=== PATIENT | male | born 1950 | race Caucasian/White ===

== ENCOUNTER 2024-03-07 07:17 | Outpatient (CLI) | payer MEDICARE, SELFPAY ==
--- NOTE | 2024-03-07 | EST_ITS ---
Patient Info Name: Israel Triplett Age: 73 years : 1950 Gender: Male Ht: 71 in Wt: 199 lbs BSA: 2.14 m2 HR: 58 bpm BP: 146 / 77 mmHg Heart Rhythm: Sinus Rhythm Exam Date: 03/07/2024 9:41 AM Exam Location: Echo Lab Patient Status: Outpatient Admit Date: 03/07/2024 Staff Ordering Physician: Mike, Omar PUGH Attending Provider: Mike, Omar PUGH Exercise Technologist: Erma Mulligan CT Exercise Physician: Shaun Jimenez DO Exam Type: CA stress jesus w NM Study Info Indications R00.1 - Bradycardia, unspecified A regadenoson stress test was performed. Summary 1. 1. Negative Lexiscan stress test for ischemic ST changes by ECG criteria. 2. 2. Baseline hypertension. 3. 3. Nuclear scan to follow and will be reported separately. Please correlate with it. 4. 4. Patient informed of the above results. Protocol: Lexiscan Stress ECG Details Stage: REST Duration (min): 1 min : 7 sec HR (bpm): 58 SBP (mmHg): 146 DBP (mmHg): 77 Stage: REST Duration (min): 8 min : 27 sec HR (bpm): 59 SBP (mmHg): 146 DBP (mmHg): 77 Stage: STAGE 1 Duration (min): 0 min : 59 sec HR (bpm): 63 SBP (mmHg): 168 DBP (mmHg): 95 Stage: RECOVERY Duration (min): 1 min : 0 sec HR (bpm): 90 SBP (mmHg): 168 DBP (mmHg): 95 Stage: RECOVERY Duration (min): 2 min : 0 sec HR (bpm): 77 SBP (mmHg): 168 DBP (mmHg): 95 Stage: RECOVERY Duration (min): 3 min : 0 sec HR (bpm): 75 SBP (mmHg): 156 DBP (mmHg): 91 Stage: RECOVERY Duration (min): 3 min : 8 sec HR (bpm): 77 SBP (mmHg): 156 DBP (mmHg): 91 Rest HR: 59 bpm Peak HR: 93 bpm Rest Sys BP: 146 mmHg Peak Sys BP: 168 mmHg Max Pred HR: 147 bpm % Max Pred HR: 63 % Target HR: 125 bpm Max RPP: 15,624 bpm*mmHg Termination Reason: Completed protocol Cardiac Symptoms: Shortness of breath Total Time: 1 min : 0 sec Rest Haynes BP: 77 mmHg Peak Haynes BP: 95 mmHg Total Dose: 0.4 mg Resting ECG Sinus rhythm. Stress ECG No ST changes. Arrhythmias None. Report Signatures
--- NOTE | 2024-03-07 | ECHO_ITS ---
Patient Info Name: Israel Triplett Age: 73 years : 1950 Gender: Male Ht: 71 in Wt: 199 lbs BSA: 2.14 m2 HR: 51 bpm BP: 145 / 87 mmHg Technical Quality: Good Exam Date: 03/07/2024 8:16 AM Exam Location: Echo Lab Patient Status: Outpatient Admit Date: 03/07/2024 Staff Ordering Physician: MikeOmar MD Importer Exporter: Casper Lobo RDCS Attending Provider: ParthaOmar MD Exam Type: CA echo doppler color flow Study Info Indications - bradycardia Complete two-dimensional, color flow and Doppler transthoracic echocardiogram is performed. Summary 1. Complete two-dimensional, color flow and Doppler transthoracic echocardiogram is performed. 2. Left ventricular chamber dimension is normal. 3. Left ventricular systolic function is normal, estimated at 60-65%. 4. The left ventricular diastolic function is normal. 5. E/e' 9 is minimally elevated. 6. There is mild to moderate aortic valve regurgitation. 7. There is trace mitral valve regurgitation. 8. No pulmonary hypertension, estimated pulmonary arterial systolic pressure is 23 mmHg. Left Ventricle E/e' 9 is minimally elevated. Left ventricular chamber dimension is normal. Left ventricular systolic function is normal, estimated at 60-65%. The left ventricular diastolic function is normal. Right Ventricle Right ventricular systolic function is normal and with normal TAPSE 2.6 cm. Right ventricular chamber dimension is normal. Left Atria Left atrial chamber dimension is normal. Right Atria Right atrial chamber dimension is normal. Aortic Valve The aortic valve is trileaflet. There is no aortic valve stenosis. There is mild to moderate aortic valve regurgitation. Pulmonic Valve There is no pulmonic regurgitation. Mitral Valve There is no mitral valve stenosis. There is trace mitral valve regurgitation. Tricuspid Valve There is no tricuspid valve regurgitation. No pulmonary hypertension, estimated pulmonary arterial systolic pressure is 23 mmHg. Pericardium/Pleural There is no pericardial effusion. Inferior Vena Cava Normal inferior vena cava with >50% collapse upon inspiration consistent with normal right atrial pressure, 5 mmHg. Aorta The aortic root size at the sinus of Valsalva is normal. Left Ventricular Outflow Tract Name Value Normal LVOT 2D LVOT Diameter 2.1 cm LVOT Doppler LVOT Peak Gradient 4 mmHg LVOT Mean Gradient 2 mmHg LVOT VTI 25 cm LVOT VTI/AV VTI Ratio 1.1 LVOT Stroke Volume 86 ml LVOT CO 4.2 l/min LVOT CI 2.0 l/min/m2 Pulmonic Valve Name Value Normal PV Doppler PV Peak Gradient 5 mmHg Mitral Valve Name Value No
--- NOTE | ~2024-03-07 | NM_ITS ---
EXAMINATION: NM jesus stress w perfusion DATE: 03/07/2024 11:24 INDICATION: Bradycardia. TECHNIQUE: Rest images were obtained following intravenous administration of 9.8 mCi Tc99m tetrofosmi n (Myoview). The patient was infused intravenously with Lexiscan (regadenoson). Then, 30.9 mCi Tc99m tetrofosmin (Myoview) was administered intravenously, and axial and prone stress images were obtained . Data was reconstructed into short axis and horizontal and vertical long axis SPECT images. Gated SP ECT images were also obtained. COMPARISON: None. FINDINGS: There is no definite reversible or fixed perfusion abnormality to suggest ischemia or infar ction. There is no segmental wall motion abnormality. Left ventricular ejection fraction measures 6 0%. IMPRESSION: 1. No definite ischemia or infarct. 2. Normal left ventricular ejection fraction measuring 60%. Reviewed, dictated and finalized at location A.
== END 2024-03-07 07:18 | disposition home or self-care (01) ==
PROVIDERS: PCP Internal Medicine; Visit Provider Internal Medicine
DX: R00.1 Bradycardia, unspecified (principal); I35.1 Nonrheumatic aortic (valve) insufficiency; R06.02 Shortness of breath
CPT/HCPCS: 78452; 93017; 93306; A9502; J2785

== ENCOUNTER 2024-04-19 09:49 | Outpatient (CLI) | payer MEDICARE, SELFPAY ==
[2024-04-19 12:05] LABS: Basophils Absolute Auto 0.1 K/mm3 (0.0-0.1); Basophils Percent Auto 1.2 % (0.2-1.2); Eosinophils Absolute Auto 0.2 K/mm3 (0-0.3); Eosinophils Percent Auto 4.2 % (0-4.4); Hematocrit 42.5 % (42.0-52.0); Hemoglobin 14.3 g/dL (14.0-18.0); Immature Granulocyte Absolute 0.01 K/mm3 (0.00-0.031); Immature Granulocyte Percent A 0.2 % (0-0.5); Lymphocytes Absolute Auto 1.35 K/mm3 (0.9-3.2); Lymphocytes Percent Auto 25.9 % (18.3-44.2); Mean Corpuscular HGB Conc 33.6 g/dl (32-36); Mean Corpuscular Hemoglobin 31.8 pg (26-34); Mean Corpuscular Volume 94.7 fl (80-100); Mean Platelet Volume 9.1 fl (7.4-10.4); Monocytes Absolute Auto 0.5 K/mm3 (0.1-0.6); Monocytes Percent Auto 10.2 % (2.6-8.5); Neutrophils Percent Auto 58.3 % (45.5-73.1); Platelet Count Result 236 k/mm3 (150-375); Red Blood Count 4.49 M/mm3 (4.6-6.20); Red Cell Distribution Width 13.2 % (11.5-14.5); White Blood Count 5.2 K/mm3 (4.5-10.0)
[2024-04-19 12:17] LABS: Urine Cotinine NEGATIVE
[2024-04-19 12:21] LABS: Albumin Level 4.5 g/dL (3.5-5.1); Estimated Glomerular Filt Rate > 60; Glucose 77 mg/dL (65-110)
[2024-04-19 13:17] LABS: MRSA (PCR) NOT DETECTED (NOT DETECTE)
[2024-04-19 13:56] LABS: Hemoglobin A1C 5.5 % (<5.7)
== END 2024-04-19 09:50 | disposition home or self-care (01) ==
LOC: ANHSURGERY 09:53
PROVIDERS: PCP Internal Medicine; Visit Provider Orthopaedic Surgery
DX: M17.11 Unilateral primary osteoarthritis, right knee (principal); Z01.818 Encounter for other preprocedural examination
CPT/HCPCS: 80307; 82040; 82565; 82947; 83036; 85025; 86850; 86900; 86901; 87641

== ENCOUNTER 2024-04-30 00:31 | Day surgery (SDC) | payer MEDICARE, SELFPAY ==
--- NOTE | 2024-04-19 09:53 | PC.NURSE ---
Report to the Outpatient Waiting Room, entrance under the green pavilion located off [address] [facility], at time __6 AM on date 04/30/24 . Planned Procedure Time: 7:30 AM .? Time changes happen often and if your time is changed the preop area will call you the afternoon before. - You and your visitor will be asked to self-screen and do not enter if you have any COVID symptoms. Please call surgeon if you need to reschedule. - A mask is optional within the hospital at this time. Patients may have clear liquids (water, carbonated beverages, clear teas, apple juice) until 3 hours prior to surgery( 4:30 AM) with a maximum of 20 ounces. - No food from midnight until time of surgery and no smoking. This includes no chewing gum, candy or mints. - Infants may have breast milk until 4 hours before surgery, formula 6 hours prior to surgery. - Children will be allowed to drink immediately following surgery.? If applicable, please bring a bottle or sippy cup to assist with drinking. Juice, water, soda, and popsicles are readily available.? For infants on formula, please bring formula the day of surgery.? Pacifiers are allowed. Take only the following medications with a SIP of water on the morning of surgery: __NONE DO NOT STOP ANY OF YOUR OTHER PRESCRIPTION MEDICATIONS PRIOR TO SURGERY EXCEPT THE FOLLOWING Medications to discontinue per physician ____ASPIRIN AND NAPROXEN PER DR TENORIO.HOLD ALL VITAMINS AND SUPPLEMENTS 3 DAYS PRE OP LAST DOSE 04/26/24 Please no make-up, nail irish, hairspray, perfume, deodorant, or body powder the day of surgery.? No jewelry (including any body piercings) or valuables the day of surgery, leave them at home.? Please take a shower or bath the night before, or the morning of, surgery with an antibacterial soap.? Wear comfortable, loose fitting clothing.? Children are encouraged to wear pajamas. - Jewelry must be removed prior to entering the operating room.? Rings and piercings that are not removed may be cut off. - The hospital will not accept responsibility for valuables.? - Please leave all valuables, including medications, at home the day of surgery. If you are going home after surgery, a licensed boat driver must drive you home.? - NO public transportation without another adult if you receive anesthesia. - We recommend that an adult stay with you for 24 hours following discharge. - We also recommend that you do not drive, make important decision, drink alcoholic beverages, or take any drugs that were not prescribed by your health care provider for at least 24 hours after your discharge time. Follow any additional instructions given to you from your surgeon. VERBAL AND WRITTEN instructions given to _PATIENT and asked if any additional questions and then verbalized understanding. Patient advised to call surgeon office or pre surgery nurse liaison [phone] if any additional questions.
[2024-04-19 09:57] VITALS: BMI 27.6
[2024-04-19 10:46] VITALS: BP 151/85; PULSE 60; RESP 18; TEMP 36.7; O2SAT 100
--- NOTE | 2024-04-24 07:42 | PM.IMHP ---
H&P: HPI History of Present Illness Date/Time: 04/24/24 07:42 Chief Complaint: Patient has osteoarthritis right knee. This has been unresponsive to conservative treatment. He would like to consider knee replacement surgery. He does have a knee replacement on the left knee. Review of Systems Musculoskeletal: Musculoskeletal: Reports arthralgias, Reports joint swelling and Reports stiffness Neurologic: Reports abnormal gait [facility] Past Medical History Medical History Crohn disease Hyperlipidemia Surgical History Surgical History History of appendectomy History of left knee replacement Social History Social History (Updated 02/07/24 @ 12:22 by Latrice Ma CMA) Smoking packs per day: 0.25 Smoking cigarettes per day: 5.0 Years smoked: 15 Smoking pack-years: 3.75 Smoking status: Former smoker Tobacco type: cigarettes Smoking end date: 05/30/89 Additional smoking assessment comments: DENIES ANY FORM OF TOBACCO USE Alcohol intake: current Drinks per week: 12 Alcohol use details: BEER Substance use type: does not use Current Housing: Decline to Answer Concerned About Future Housing: Decline to Answer Difficulty Paying Gas/Electric Bills: Decline to Answer Difficulty Paying for Meds: Decline to Answer Currently Unemployed: Decline to Answer Education: Decline to Answer Difficulty w/ Childcare or Family Care: Decline to Answer Living arrangements: with family Occupation/Education: retired Gender identity (if verbalized by the patient): Male Spiritual care concerns: No Meds Home Medications and Allergies Home Medications Medication Instructions Recorded Confirmed Type atorvastatin 10 mg tablet 10 mg PO DAILY 10/25/23 04/19/24 History colestipol 1 gram tablet 1 g PO DAILY 10/25/23 04/19/24 History naproxen sodium 220 mg tablet 220 mg PO PRN PRN Pain 10/25/23 04/19/24 History (Aleve) aspirin 81 mg tablet,delayed 81 mg PO DAILY 04/19/24 04/19/24 History release (Adult Low Dose Aspirin) cholecalciferol (vitamin D3) 100 100 mcg PO DAILY 04/19/24 04/19/24 History mcg (4,000 unit) tablet ginkgo biloba 40 mg tablet 40 mg PO DAILY 04/19/24 04/19/24 History glucosamine sulf dipot 1 cap PO DAILY 04/19/24 04/19/24 History chlr,msm,chond 550 mg-C 30 mg-stas 1 mg capsule (Glucosamine Chondroitin) vitamin B complex 1 cap PO DAILY 04/19/24 04/19/24 History Allergies Allergy/AdvReac Type Severity Reaction Status Date / Time No Known Allergies Allergy Verified 04/19/24 09:57 Exam Narrative: On exam patient is motion the knee from about 5-110 degrees. He has varus deformity. He has got spurring and grinding crepitus and pain with manipulation. He walks with an antalgic gait. Neurologically appears to be grossly intact. Radiology Reports: Comments: Bill Fuentes M.D. Orthopedics Patient: Israel Triplett : 1950 10/25/23 07:14 XR knee RT 3V Routine Interpretation: AP lateral skyline view RIGHT knees demonstrate [id number] arthritis of the right knee. He has a total knee arthroplasty in reasonable alignment on the left. This report may have been done utilizing a voice recognition system. Attempts have been made to correct errors. However, there may be uncorrected grammatical, spelling, and recognition errors present. Documented By: Bill Fuentes MD 10/25/23 0752 Signed By: <Electronically signed by Bill Fuentes MD> 10/25/23 0800 Knee X-Ray 10/25/23 Orthopedics Result Report 10/25/23 Assessment and Plan Assessment and plan (1) Osteoarthritis of right knee: Code(s): M17.11 - Unilateral primary osteoarthritis, right knee Status: Acute Assessment and Plan: Patient has osteoarthritis right knee. He has a knee replacement on the left and is doing well from that. He has failed conservative treatment like to consider knee replacement surgery on the right. I discussed risks benefits limitations and alternatives with the patient in detail he understands and agrees. Will proceed with total knee arthroplasty right per his request.
[2024-04-30] VITALS (13 sets, daily range): BP systolic 125–153; BP diastolic 65–93; PULSE 64–91; RESP 12–18; TEMP 36.1–36.6; O2SAT 95–100; BMI 27.1
--- NOTE | ~2024-04-30 | XR_ITS ---
EXAMINATION: [id number] DATE: 04/30/2024 10:08 INDICATION: Total right knee arthroplasty. Postop. TECHNIQUE: 2 views of right knee were obtained. COMPARISON: None. FINDINGS: There is a total right knee arthroplasty with patellar resurfacing in near-anatomic alignme nt. No fracture. There is gas in the knee joint and soft tissues, consistent with recent surgery. Ant erior skin therese are noted. IMPRESSION: 1. Total right knee arthroplasty in near-anatomic alignment. Reviewed, dictated and finalized at location [facility]
[2024-04-30] MEDS: TRANEXAMIC ACID 1,000MG/ISO100 1,000 MG/100 ML BAG 200 MG IVPB (06:37)
[2024-04-30] MEDS: VANCOMYCIN 1,250 MG/NS 250 ML 1,250 MG/250 ML BAG 166.67 MG IVPB (06:37)
[2024-04-30] MEDS: ACETAMINOPHEN 500 MG TABLET 1000 MG PO (06:37)
[2024-04-30] MEDS: LACTATED RINGERS 1,000 ML 30 ML IV CONT ×3 (06:38→09:39)
--- NOTE | 2024-04-30 06:50 | WPDHPUPDATE1 ---
History and Physical Update Update Date/Time: 04/30/24 06:50 History and Physical has been reviewed, including an updated exam of the patient. There are NO changes in the patient's condition. Risks, benefits, and alternatives have been discussed and questions answered. Patient agrees to proceed with procedure.
--- NOTE | 2024-04-30 07:03 | P.PNAN_ITS ---
Anes - Initial Pre Proc Eval Procedure: Operation Date: 04/30/24 07:30 Proposed Procedures p Right Total Knee Arthroplasty - Bill Fuentes MD Date/Time: 04/30/24 07:03 Surgeon: Bill Fuentes MD Pre Op Diagnosis: O A Rt Knee Patient Data Age: 73 Gender: M Height: 1.8 m Weight: 88.2 kg Last Vital Signs Temp 97.7 F 04/30/24 06:48 Pulse 64 04/30/24 06:48 Resp 18 04/19/24 10:46 BP 135/65 04/30/24 06:48 Pulse Ox 98 04/30/24 06:48 O2 Del Method Room Air 04/30/24 06:48 Allergies Allergy/AdvReac Type Severity Reaction Status Date / Time No Known Allergies Allergy Verified 04/19/24 09:57 Home Medications Medication Instructions Recorded Confirmed Type atorvastatin 10 mg tablet 10 mg PO DAILY 10/25/23 04/19/24 History colestipol 1 gram tablet 1 g PO DAILY 10/25/23 04/19/24 History naproxen sodium 220 mg tablet 220 mg PO PRN PRN Pain 10/25/23 04/19/24 History (Aleve) aspirin 81 mg tablet,delayed 81 mg PO DAILY 04/19/24 04/19/24 History release (Adult Low Dose Aspirin) cholecalciferol (vitamin D3) 100 100 mcg PO DAILY 04/19/24 04/19/24 History mcg (4,000 unit) tablet ginkgo biloba 40 mg tablet 40 mg PO DAILY 04/19/24 04/19/24 History glucosamine sulf dipot 1 cap PO DAILY 04/19/24 04/19/24 History chlr,msm,chond 550 mg-C 30 mg-stas 1 mg capsule (Glucosamine Chondroitin) vitamin B complex 1 cap PO DAILY 04/19/24 04/19/24 History Patient hx anesthesia problems: none Family hx anesthesia problems: none Results Review: All pre-operative results and documents have been reviewed as part of the pre- operative evaluation. [facility] Past Medical History Medical History Crohn disease Hyperlipidemia Surgical History Surgical History History of appendectomy History of left knee replacement Social History Social History Smoking packs per day: 0.25 Smoking cigarettes per day: 5.0 Years smoked: 15 Smoking pack-years: 3.75 Smoking status: Former smoker Tobacco type: cigarettes Smoking end date: 05/30/89 Additional smoking assessment comments: DENIES ANY FORM OF TOBACCO USE Alcohol intake: current Drinks per week: 12 Alcohol use details: BEER Substance use type: does not use Current Housing: Decline to Answer Concerned About Future Housing: Decline to Answer Difficulty Paying Gas/Electric Bills: Decline to Answer Difficulty Paying for Meds: Decline to Answer Currently Unemployed: Decline to Answer Education: Decline to Answer Difficulty w/ Childcare or Family Care: Decline to Answer Living arrangements: with family Occupation/Education: retired Gender identity (if verbalized by the patient): Male Spiritual care concerns: No Anes - Eval Final PreProcedure Day of Procedure 04/30/24 07:03 Patient weight: normal Heart: regular rate and rhythm Lungs: clear to auscultation Airway: Mallampati scale class II Neurological: alert and oriented Last oral intake: >/= 8 hours ASA classification: II Emergent: no Anesthetic plan: proceed Anesthesia type and monitoring: general ETT and standard monitoring Results Review: All pre-operative results and documents have been reviewed as part of the pre- operative evaluation. Hyperlipidemia. ECHO 02/2024 w nml LVEF, no . Informed Consent: The patient's anesthetic plan and its attendant risks and benefits were discussed with the patient/family/POA. Questions were solicited and answers provided to the satisfaction of the patient/family/POA.
--- NOTE | 2024-04-30 07:18 | WPDANESPNB ---
Anes - Peripheral Nerve Block Date/Time: 04/30/24 07:18 I have discussed with the patient/family/POA the placement of a peripheral nerve block for post-operative pain management, including associated risks, benefits, complications, and side effects. Alternative methods of post-operative analgesia were detailed. Questions were solicited and answers provided to the satisfaction of the patient/family/POA. Time-Out: A pre-procedural Time-Out was completed immediately before starting the procedure and confirmed: Patient Identification, Site, Procedure, Patient Position and the Availability of Requisite Equipment. Clinical Indications: Acute post-operative pain management requested by the operative surgeon. Nerve Block Insertion Note Anes-nerve block: adductor canal right Patient position: supine Skin prep: chlorhexidine Needle: 22 gauge, stimulating, insulated echogenic needle. Needle length: 80 mm Technique: ultrasound Injectate: other (Bupiv 0.5% 15 mls. ) Observations: tolerated well Complications: none Procedure start time:: 720 Procedure end time:: 725
[2024-04-30] MEDS: ceFAZolin 2 GM/D5W 50 ML 2 GM/50 ML BAG IVPB ×2 (07:42→16:58)
[2024-04-30] MEDS: SODIUM CHLORIDE 0.9% IV 37.7 ML, MORPHINE SULFATE INJ (*CRX) 2 MG, ROPivacaine HCL 1% 2... INFILTRATE (08:00)
[2024-04-30] MEDS: TRANEXAMIC ACID 1,000 MG/10 ML AMPUL 1000 MG IV PUSH (09:10)
--- NOTE | 2024-04-30 09:16 | W.PM.PROC2 ---
Procedure Note - Detailed Date of Procedure 04/30/24 Pre-op Diagnosis Osteoarthritis RIGHT Knee Post-op Diagnosis Same Procedure Performed RIGHT total knee arthroplasty Surgeon Bill Fuentes MD Anesthesia General Indications Pain and Arthritis Description of Procedure The patient was brought to operating room #8. A general anesthetic was administered. Placed on the operating table and sterilely prepped and draped in usual manner. A longitudinal incision was made. Tourniquet inflated to 300 mmHg for a total of 57 minutes. Dissection was carried down to the fascia. Medial parapatellar incision was made and the patella subluxated laterally. Patella cut from 25 to 15 mm and sized for a 37 mm button. The tibia was cut perpendicular to the long axis and femur cut in 5 degrees of valgus, taking an additional millimeter off for is flexion contracture. A 67.5 femur trialed. 71 tibia was felt to fit the best. The soft tissues balanced, hemostasis obtained. All [address], 71 tibia, 67.5 femur, 37 mm patella, and 10AS mm poly. Motion was 0-125 degrees with good stability in both flexion and extension. The wound was closed with #2 Vicryl, 2-0 Vicryl and therese. [employer]plants [employer] Estimated Blood Loss 200 Drains No Packing No Pathology None sent Complications No immediate complications Condition Stable Disposition PACU [facility] Billing Surgery - Charge Forward: Surgery Billing ([id number] Total Knee)
[2024-04-30] MEDS: fentaNYL CITRATE INJ (*CRX) 100 MCG/2 ML VIAL 25 MCG IV PUSH ×4 (10:02→10:27)
--- NOTE | 2024-04-30 11:27 | ADMGEN ---
This patient, Israel Triplett, was admitted to [facility] Room 313-01 at 1102. Patient/family oriented to hospital policies and general routines including ID bracelet, bed and alarms, visiting hours, pain management, procedures, bathroom and other care routines, personal items, smoking policy, room service/diet, and visiting hours. Information on how to activate the Rapid Response Team has been discussed. Patient/Family are encouraged to report perceived risks to care and to ask questions if they do not understand what they are told or what they should do.
[2024-04-30] MEDS: SODIUM CHLORIDE 0.9% IV 1,000 ML 125 ML IV CONT (11:39)
--- NOTE | 2024-04-30 12:18 | PM.IMCN ---
Assessment and Plan Assessment and plan (1) Osteoarthritis of right knee: Qualifiers: Osteoarthritis type: primary Qualified Code(s): M17.11 - Unilateral primary osteoarthritis, right knee Code(s): M17.11 - Unilateral primary osteoarthritis, right knee Status: Acute Assessment and Plan: Underwent a right total knee arthroplasty on 04/30 with Alfredo PUGH. Primary management through orthopedic team. - ambulate with assistance and up to chair - use IS - neurovasc checks - see order for intervals - SCDs and INGE - resume diet - analgesics and antiemetics p.r.n. - monitor labs in AM - CBC and BMP - bowel regimen: docusate/senna, polyethylene glycol - PT/OT (2) Hyperlipidemia: Qualifiers: Hyperlipidemia type: unspecified Qualified Code(s): E78.5 - Hyperlipidemia, unspecified Code(s): E78.5 - Hyperlipidemia, unspecified Status: Chronic Assessment and Plan: - atorvastatin 10 mg daily continued Plan Diet: Regular GI Prophylaxis: Not currently indicated DVT Prophylaxis: SCDs, TEDs, start Xarelto on 04/30 Lines: Peripheral Code Status: Full code HPI Date of Consult Consult date: 04/30/24 Requesting Physician: Bill Fuentes MD Primary Care Provider: Omar MckeonMD Consult Narrative Reason for consult: Medical Managment Narrative: 73 y/o M presents here for a right total knee arthroplasty with PMH of Crohn's disease and hyperlipidemia. The patient presented here for a right total knee arthroplasty done on 04/30 with Alfredo PUGH. He reports that he has had ongoing pain to his right knee for the past couple years. Has previously failed conservative treatment including one steroid injection, physical therapy, and Voltaren PO if he had a planned increase in activity (such as vacation). Last steroid injection was in 4-5 months ago, offered relief initially but wore off after 4-5 weeks. Has previously underwent a left knee arthroplasty in 2017 with good results and an uneventful recovery. Pain now interfering with his daily activities. Given these factors he elected to move forward with surgical management. Postoperatively he is reporting no nausea/vomiting and pain is manageable. Denies any recent changes to his medical history or medications. Preop VS: 98? F, HR 60, R 18, 151/85, and 100% on RA. Preop workup: No leukocytosis, no anemia, creatinine 0.7 and GFR >60, nasal MRSA negative. Review of Systems Review of Systems: All systems reviewed & are unremarkable except as noted in HPI and below PMFSH Past Medical History Medical History (Updated 04/30/24 @ 12:23 by Noreen Mata APRN) Crohn disease Hyperlipidemia Surgical History Surgical History (Updated 04/30/24 @ 13:49 by Noreen Mata APRN) History of appendectomy History of arthroplasty of right knee (04/30/24) History of left knee replacement (~2017) Social History Social History Smoking packs per day: 0.25 Smoking cigarettes per day: 5.0 Years smoked: 15 Smoking pack-years: 3.75 Smoking status: Former smoker Additional smoking assessment comments: DENIES ANY FORM OF TOBACCO USE Alcohol intake: current Drinks per week: 12 Alcohol use details: BEER Substance use type: does not use Do You Feel Safe in your Home?: Yes Lack of Transportation: No Lack of Food: Never True Current Housing: Decline to Answer Concerned About Future Housing: Decline to Answer Difficulty Paying Gas/Electric Bills: Decline to Answer Difficulty Paying for Meds: Decline to Answer Currently Unemployed: Decline to Answer Education: Decline to Answer Difficulty w/ Childcare or Family Care: Decline to Answer Living arrangements: with family Occupation/Education: retired Gender identity (if verbalized by the patient): Male Spiritual care concerns: No Meds Home Medications and Allergies Home Medications Medication Instructions Recorded Confirmed Type atorvastatin 10 mg tablet 10 mg PO DAILY 10/25/23 04/19/24 History colestipol 1 gram tablet 1 g PO DAILY 10/25/23 04/19/24 History naproxen sodium 220 mg tablet 220 mg PO PRN PRN Pain 10/25/23 04/19/24 History (Aleve) aspirin 81 mg tablet,delayed 81 mg PO DAILY 04/19/24 04/19/24 History release (Adult Low Dose Aspirin) cholecalciferol (vitamin D3) 100 100 mcg PO DAILY 04/19/24 04/19/24 History mcg (4,000 unit) tablet ginkgo biloba 40 mg tablet 40 mg PO DAILY 04/19/24 04/19/24 History glucosamine sulf dipot 1 cap PO DAILY 04/19/24 04/19/24 History chlr,msm,chond 550 mg-C 30 mg-stas 1 mg capsule (Glucosamine Chondroitin) vitamin B complex 1 cap PO DAILY 04/19/24 04/19/24 History Allergies Allergy/AdvReac Type Severity Reaction Status Date / Time No Known Allergies Allergy Verified 04/19/24 09:57 Vital Signs Vital Signs - 24 hr 04/30/24 06:48 04/30/24 09:39 04/30/24 09:55 Temperature 97.7 F 97 F L Pulse Rate 64 70 89 Respiratory Rate 12 17 Blood Pressure 135/65 128/74 148/93 H Pulse Oximetry 98 100 96 Oxygen Delivery Room Air Simple Face Mask Room Air Oxygen Flow Rate 10 04/30/24 10:10 04/30/24 10:25 04/30/24 10:40 Temperature Pulse Rate 87 88 89 Respiratory Rate 15 16 13 Blood Pressure 148/85 H 153/84 H 152/81 H Pulse Oximetry 95 96 97 Oxygen Delivery Room Air Room Air Room Air Oxygen Flow Rate Exam Const: General: comfortable and no acute distress Other: , male, nontoxic appearing HENMT: Face/Nose/Sinus: Normal nares present Mouth: Yes moist mucous membranes Eyes: General: appearance normal, both eyes and all related structures Sclera: sclerae normal Pupils: Equal, round and reactive pupils present EOM: EOMs intact bilaterally Resp: Effort & Inspection: normal respiratory effort Auscultation: clear to auscultation bilaterally Cardio: Rate: regular rate Rhythm: regular rhythm Other: S1-S2 present without murmur, rub, ectopy GI: Other: Abdomen soft, nondistended, nontender. Neuro: Speech: normal speech Motor exam (neuro): 5/5 motor strength present throughout Sensory Exam: normal sensation Other: A&O x4 Extrem: General: normal exam except as noted (Postsurgical incision to right knee. Dressing CDI. Mild edema.) Psych: Mental Status: mental status grossly normal Affect: normal affect Other: Good insight and judgment, pleasant Quality VTE Prophylaxis VTE prophylaxis: mechanical ordered and pharmacologic ordered Hospitalist [facility] Advance Care Plan I have confirmed that the patient's Advanced Care Plan is present, code status is documented, or surrogate decision maker is listed in patient medical record.: Yes Medication Reconciliation I have utilized all available resources to obtain, update and review the patients current medications (includes all prescriptions, OTC, herbals, cannabis, and nutritional supplements).: Yes
[2024-04-30] MEDS: SENNA/DOCUSATE SODIUM TABLET 2 TAB PO (16:58)
[2024-04-30] MEDS: CELECOXIB 200 MG CAPSULE PO (16:58)
[2024-04-30] MEDS: HYDROcodone/acetaminophen (*CRX) 10-325 MG TABLET 1 TAB PO (17:06)
[2024-04-30] MEDS: RIVAROXABAN 10 MG TABLET PO (21:06)
[2024-04-30] MEDS: HYDROcodone/acetaminophen (*CRX) 5-325 MG TABLET 1 TAB PO (21:06)
[2024-05-01] MEDS: ceFAZolin 2 GM/D5W 50 ML 2 GM/50 ML BAG IVPB ×2 (00:31→09:17)
[2024-05-01 04:37] VITALS: BP 139/77; PULSE 77; RESP 16; TEMP 36.6; O2SAT 97
[2024-05-01] MEDS: HYDROcodone/acetaminophen (*CRX) 5-325 MG TABLET 1 TAB PO (06:47)
[2024-05-01 06:48] LABS: Basophils Percent Auto 0.3 % (0.2-1.2); Eosinophils Percent Auto 0.6 % (0-4.4); Hematocrit 34.4 % (42.0-52.0); Hemoglobin 11.5 g/dL (14.0-18.0); Immature Granulocyte Absolute 0.01 K/mm3 (0.00-0.031); Immature Granulocyte Percent A 0.2 % (0-0.5); Lymphocytes Absolute Auto 0.86 K/mm3 (0.9-3.2); Lymphocytes Percent Auto 13.7 % (18.3-44.2); Mean Corpuscular HGB Conc 33.4 g/dl (32-36); Mean Corpuscular Hemoglobin 31.8 pg (26-34); Mean Platelet Volume 8.7 fl (7.4-10.4); Monocytes Absolute Auto 0.8 K/mm3 (0.1-0.6); Monocytes Percent Auto 13.2 % (2.6-8.5); Neutrophils Absolute Auto 4.5 K/mm3 (1.3-6.7); Platelet Count Result 191 k/mm3 (150-375); Red Blood Count 3.62 M/mm3 (4.6-6.20); Red Cell Distribution Width 13.2 % (11.5-14.5); White Blood Count 6.3 K/mm3 (4.5-10.0)
[2024-05-01 07:12] LABS: Anion Gap 2 mmol/L (4-12); Blood Urea Nitrogen 13 mg/dL (9-20); Calcium 8.1 mg/dL (8.4-10.2); Carbon Dioxide 29 mmol/L (22-30); Chloride 103 mmol/L (98-107); Estimated CRCL calculation 76 ml/min; Estimated Glomerular Filt Rate > 60; Glucose 123 mg/dL (65-110); Potassium 3.6 mmol/L (3.4-5.0); Sodium 134 mmol/L (137-145)
--- NOTE | 2024-05-01 07:14 | PM.PNORT ---
Progress Note: A&P Assessment and Plan (1) History of knee replacement procedure of right knee: Code(s): Z96.651 - Presence of right artificial knee joint Status: Acute Assessment and Plan: The patient is status post total knee arthroplasty right. He seemingly has done well postoperatively. Think after therapy can be dismissed home. He can be full weight-bearing on the knee. If he has any changes or problems I have asked him to call. Follow-up in 2 weeks for sutures out. Subjective Subjective Date/Time Seen: 05/01/24 07:14 Post Op day: 1 Principal diagnosis: RIGHT TOTAL KNEE Review of Systems Review of Systems: All systems reviewed & are unremarkable except as noted in HPI and below Exam Narrative: Patient wiggles toes. He is able to ambulate with a walker. His dressing is dry. Neurologically appears intact. Objective Data Vital Signs Vital Signs: Vital Signs - 24 hr 04/30/24 09:39 04/30/24 09:55 04/30/24 10:10 Temperature 97 F L Pulse Rate 70 89 87 Respiratory Rate 12 17 15 Blood Pressure 128/74 148/93 H 148/85 H Pulse Oximetry 100 96 95 Oxygen Delivery Simple Face Mask Room Air Room Air Oxygen Flow Rate 10 04/30/24 10:25 04/30/24 10:40 04/30/24 13:24 Temperature Pulse Rate 88 89 Respiratory Rate 16 13 Blood Pressure 153/84 H 152/81 H Pulse Oximetry 96 97 Oxygen Delivery Room Air Room Air Room Air Oxygen Flow Rate 04/30/24 10:52 04/30/24 11:07 04/30/24 11:37 Temperature 97.2 F L 97.2 F L 97.8 F Pulse Rate 86 87 90 Respiratory Rate 18 18 18 Blood Pressure 149/84 H 140/70 125/72 Pulse Oximetry 96 96 96 Oxygen Delivery Oxygen Flow Rate 04/30/24 12:37 04/30/24 16:37 04/30/24 20:37 Temperature 97.9 F 97.6 F 97.9 F Pulse Rate 91 80 80 Respiratory Rate 18 18 16 Blood Pressure 138/65 132/75 131/76 Pulse Oximetry 96 96 97 Oxygen Delivery Oxygen Flow Rate 04/30/24 20:00 04/30/24 23:58 05/01/24 04:37 Temperature 97.7 F 97.8 F Pulse Rate 81 77 Respiratory Rate 16 16 Blood Pressure 137/74 139/77 Pulse Oximetry 96 97 Oxygen Delivery Room Air Oxygen Flow Rate Intake/Output Intake/Output: Intake & Output 04/28/24 04/29/24 04/30/24 05/01/24 23:59 23:59 23:59 23:59 Intake Total 2079 50 Balance 2079 50 Meds/Results Medications: Active Medications Generic Name Dose Route Start Last Admin Trade Name Freq PRN Reason Stop Dose Admin Hydrocodone Bitart/Acetaminophen 1 tab 04/30/24 10:52 05/01/24 06:47 Hydrocodone/Acetaminophen (*Crx) 5-325 Mg Tablet PO 1 tab Q4H PRN Administration Pain Rated 4-6 Hydrocodone Bitart/Acetaminophen 1 tab 04/30/24 10:52 04/30/24 17:06 Hydrocodone/Acetaminophen (*Crx) 10-325 Mg Tablet PO 1 tab Q4H PRN Administration Pain Rated 7-10 Aspirin 81 mg 05/01/24 09:00 Aspirin 81 Mg Enteric Tablet PO DAILY [facility] Atorvastatin Calcium 10 mg 05/01/24 09:00 Atorvastatin 10 Mg Tablet PO DAILY [facility] Celecoxib 200 mg 04/30/24 17:00 04/30/24 16:58 Celecoxib 200 Mg Capsule PO 200 mg BIDWM [facility] Administration Cyclobenzaprine HCl 10 mg 04/30/24 10:52 Cyclobenzaprine Hcl 10 Mg Tablet PO Q8H PRN Spasms Diphenhydramine HCl 25 mg 04/30/24 10:52 Diphenhydramine Hcl Inj 50 Mg/Ml Vial IV PUSH Q6H PRN Itching Hydromorphone HCl 1 mg 04/30/24 10:52 Hydromorphone Hcl Inj (*Crx) 1 Mg/Ml Syr IV PUSH Q2H PRN Breakthrough Pain Rated 7-10 or NPO Hydromorphone HCl 0.5 mg 04/30/24 10:52 Hydromorphone Hcl Inj (*Crx) 1 Mg/Ml Syr IV PUSH Q2H PRN Breakthrough Pain Rated 4-6 or NPO Cefazolin Sodium 2 gm in 50 mls @ 100 mls/hr 04/30/24 16:00 05/01/24 01:01 Ancef 2 Gm/D5w 50 Ml IVPB 05/01/24 08:29 Infused Q8H [facility] Infusion Ibuprofen 800 mg in 200 mls @ 400 mls/hr 04/30/24 10:52 Caldolor 800 Mg/200 Ml IVPB Q6H PRN Breakthrough Pain Rated 1-3 or NPO Naloxone HCl 0.1 mg 04/30/24 10:52 Naloxone Hcl 0.4 Mg/Ml Vial IV PUSH Q2M PRN Opiate Reversal Ondansetron HCl 4 mg 04/30/24 10:52 Ondansetron Inj 4 Mg/2 Ml Vial IV PUSH Q4H PRN Nausea And Vomiting Polyethylene Glycol 17 gm 05/01/24 09:00 Polyethylene Glycol 3350 17 Gm Powd.Pack PO QAM MARIAN Rivaroxaban 10 mg 04/30/24 21:00 04/30/24 21:06 Rivaroxaban 10 Mg Tablet PO 05/11/24 17:01 10 mg DAILY@17 MARIAN Administration Senna/Docusate Sodium 2 tab 04/30/24 17:00 04/30/24 16:58 Senna/Docusate Sodium Tablet PO 2 tab BID MARIAN Administration Tramadol HCl 50 mg 04/30/24 10:52 Tramadol Hcl (*Crx) 50 Mg Tablet PO Q4H PRN Pain Rated 1-3 Radiology Results: ITS Impressions Knee X-Ray 04/30/24 11:01 IMPRESSION: 1. Total right knee arthroplasty in near-anatomic alignment. Labs Labs: Laboratory Results - last 24 hr 05/01/24 06:40 WBC 6.3 RBC 3.62 L Hgb 11.5 L Hct 34.4 L MCV 95.0 MCH 31.8 MCHC 33.4 RDW 13.2 Plt Count 191 MPV 8.7 Immature Gran % (Auto) 0.2 Neut % (Auto) 72.0 Lymph % (Auto) 13.7 L [place] % (Auto) 13.2 H Eos % (Auto) 0.6 Baso % (Auto) 0.3 Lymph # (Auto) 0.86 L [place] # (Auto) 0.8 H Eos # (Auto) 0.0 Baso # (Auto) 0.0 Abs Immat Gran (auto) 0.01 Absolute Neuts (auto) 4.5 Absolute Nucleated RBC 0.000 Nucleated RBC % 0.0 Sodium 134 L Potassium 3.6 Chloride 103 Carbon Dioxide 29 Anion Gap 2 L BUN 13 Creatinine 0.80 Estim Creat Clear Calc 76 Estimated GFR > 60 Glucose 123 H Calcium 8.1 L
--- NOTE | 2024-05-01 07:18 | P.DS_ITS ---
DS: Admitting Diagnosis Discharge Date 05/01/24 Admitting Diagnosis Osteoarthritis right knee. DS: Discharge Diagnosis Discharge Diagnosis (1) History of knee replacement procedure of right knee: Code(s): Z96.651 - Presence of right artificial knee joint Status: Acute Assessment and Plan: Patient underwent total knee arthroplasty right for osteoarthritis. He has done well postoperatively. He is able ambulate with a walker. DS: Summary Hospital Course Hospital Course: Patient is status post total knee arthroplasty for osteoarthritis on the right knee. He has done well postoperatively and follow to typical course. He is able ambulate. Will dismiss him today with follow-up in 2 weeks for therese out. If he has any changes or problems I have asked him to call discussed. Status at Discharge Functional status at discharge: uses cane/walker Time Spent with Patient Time attestation: Total time spent providing and/or coordinating discharge services: Exam Narrative: Patient appears to be neurologically intact. Can wiggle his toes and move his legs. The pain is tolerable. He is able ambulate with a walker. Dressing is dry and intact. DS: Data Data Completed and Pending Labs on day of discharge: Labs from last 24 hours 05/01/24 06:40 WBC 6.3 RBC 3.62 L Hgb 11.5 L Hct 34.4 L MCV 95.0 MCH 31.8 MCHC 33.4 RDW 13.2 Plt Count 191 MPV 8.7 Immature Gran % (Auto) 0.2 Neut % (Auto) 72.0 Lymph % (Auto) 13.7 L [place] % (Auto) 13.2 H Eos % (Auto) 0.6 Baso % (Auto) 0.3 Lymph # (Auto) 0.86 L [place] # (Auto) 0.8 H Eos # (Auto) 0.0 Baso # (Auto) 0.0 Abs Immat Gran (auto) 0.01 Absolute Neuts (auto) 4.5 Absolute Nucleated RBC 0.000 Nucleated RBC % 0.0 Sodium 134 L Potassium 3.6 Chloride 103 Carbon Dioxide 29 Anion Gap 2 L BUN 13 Creatinine 0.80 Estim Creat Clear Calc 76 Estimated GFR > 60 Glucose 123 H Calcium 8.1 L Discharge Plan Discharge Patient Disposition: Home, Self-Care Discharge Instructions: Dr. Bill Fuentes M.D [address] [address] POST-OPERATIVE DISCHARGE INSTRUCTIONS TOTAL KNEE ARTHROPLASTY 1. When resting, do not rest in the chair.When resting, lie on your back, with back flat on the couch or bed, with leg elevated above heart to minimize swelling. You may put a pillow under your head. . Significant swelling could indicate a blood clot and if this occurs call the office (or go to the ER) to have a venous ultrasound. Therefore, do not rest in a chair. 2. At least five times a day spend several minutes stretching your knee into flexion while sitting in the chair and also stretching your knee out straight The abilities to bend your knee fulling and straighten your knee fully are two most important knee functions to focus on during your recovery. 3. It is ok to sit in chair to eat, use the toilet and receive a guest and to do your stretching exercises, but, sitting in a chair will cause your leg to swell. Therefore, avoid additional time sitting in the chair. and don't rest in the chair. 4. Wound Care: Nursing will give you an additional Mepilex dressing at the time of discharge. Patient to remove the dressing and apply a new Mepilex dressing at home 7 days after surgery and leave the dressing on until seen in office. 5. May shower with a Mepilex dressing in place.The water will run off the dressing. 6. Unless you are told otherwise, you may put full weight on your operated leg. Use a walker for balance and practice walking as normally as you can, ideally for a few minutes every hour while you are awake. 7. I would advise against putting ice packs on your knee incision. Ice constricts blood flow which can impar healing of the knee incision. IMPORTANT: Remember not to sit in the chair for more than 30 minutes at a time. As a rule, during the first 14 days after surgery, only sit in the chair to work on the chair knee bending stretch exercise, for meals or for use of the restroom. Sitting in the chair promotes significant swelling in the knee and leg which will make your knee stiff and more painful and which simulates having a blood clot in the veins of the leg. If this type of significant diffuse swelling occurs, an ultrasound at the hospital will be necessary to rule out a blood clot. Be up walking around with the walker for a few minutes every hour while awake and then rest laying on your back on the couch or in bed with your leg elevated on cushions or pillows. Do not rest in the chair. Stand Alone Forms: General Discharge Instructions Follow-up/Referrals: Bill Fuentes MD [Physician] - Discharge Medications: New doxycycline hyclate 100 mg tablet 100 mg PO DAILY Qty: 10 0RF hydrocodone-acetaminophen 7.5-325 mg tablet 1 tablet PO Q4H PRN (Reason: pain) Qty: 40 0RF Xarelto 10 mg tablet 10 mg PO DAILY Qty: 10 0RF Rx Instructions: for 35 days Continued atorvastatin 10 mg tablet 10 mg PO DAILY colestipol 1 gram tablet 1 g PO DAILY naproxen sodium [Aleve] 220 mg tablet 220 mg PO PRN PRN (Reason: Pain) Glucosamine Chondroitin 550-30-1 mg Capsule 1 cap PO DAILY cholecalciferol (vitamin D3) 100 mcg (4,000 unit) Tablet 100 mcg PO DAILY aspirin [Adult Low Dose Aspirin] 81 mg Tablet,Delayed Release (Dr/Ec) 81 mg PO DAILY vitamin B complex Capsule 1 cap PO DAILY ginkgo biloba 40 mg Tablet 40 mg PO DAILY Rx Instructions: give with meal/snack
[2024-05-01 08:10] VITALS: BP 133/72; PULSE 70; RESP 18; TEMP 36.7; O2SAT 97
[2024-05-01] MEDS: SENNA/DOCUSATE SODIUM TABLET 2 TAB PO (09:16)
[2024-05-01] MEDS: ASPIRIN 81 MG ENTERIC TABLET PO (09:17)
[2024-05-01] MEDS: CELECOXIB 200 MG CAPSULE PO (09:17)
[2024-05-01] MEDS: polyethylene glycoL 3350 17 GM POWD.PACK PO (09:17)
[2024-05-01] MEDS: ATORVASTATIN 10 MG TABLET PO (09:17)
[2024-05-01] MEDS: HYDROcodone/acetaminophen (*CRX) 10-325 MG TABLET 1 TAB PO (10:40)
--- NOTE | 2024-05-01 11:14 | PM.IMPN ---
Progress Note: A&P Assessment and Plan (1) Osteoarthritis of right knee: Qualifiers: Osteoarthritis type: primary Qualified Code(s): M17.11 - Unilateral primary osteoarthritis, right knee Code(s): M17.11 - Unilateral primary osteoarthritis, right knee Status: Acute Assessment and Plan: Underwent a right total knee arthroplasty on 04/30 with Alfredo PUGH. Primary management through orthopedic team. Postop orders reviewed. Xarelto for DVT prophylaxis. Underwent PT OT. (2) Hyperlipidemia: Qualifiers: Hyperlipidemia type: unspecified Qualified Code(s): E78.5 - Hyperlipidemia, unspecified Code(s): E78.5 - Hyperlipidemia, unspecified Status: Chronic Assessment and Plan: - atorvastatin 10 mg daily continued Plan Diet: Regular GI Prophylaxis: Not currently indicated DVT Prophylaxis: SCDs, TEDs, start Xarelto on 04/30 Lines: Peripheral Code Status: Full code Subjective Date/time seen: 05/01/24 11:14 Interval history: Doing well. No new complaints. Denies any chest pain or shortness of breath. Work with therapy today Review of Systems Review of Systems: All systems reviewed & are unremarkable except as noted in HPI and below Exam Narrative: GENERAL: The patient is well developed, not in acute distress HEENT: Nonicteric sclerae, PERRLA, EOMI. Oropharynx clear. Moist mucous membranes. Conjunctivae appear well perfused. CHEST: Chest wall is nontender. HEART: Regular rate and rhythm without murmur, rubs, or gallops LUNGS: Clear to auscultation bilaterally. no respiratory distress ABDOMEN: Soft, positive bowel sounds, non-tender, no organomegaly. SKIN: No rash, no excessive bruising, petechiae, or purpura. NEUROLOGIC: Cranial nerves II-XII intact, alert and oriented x 3, no gross motor deficits EXTREMITIES: no edema, cyanosis or clubbing Right knee: Postsurgical incision to right knee. Dressing CDI. Mild edema. Objective Data Vital Signs Vital Signs: Vital Signs - 24 hr 04/30/24 13:24 04/30/24 11:37 04/30/24 12:37 Temperature 97.8 F 97.9 F Pulse Rate 90 91 Respiratory Rate 18 18 Blood Pressure 125/72 138/65 Pulse Oximetry 96 96 Oxygen Delivery Room Air 04/30/24 16:37 04/30/24 20:37 04/30/24 20:00 Temperature 97.6 F 97.9 F Pulse Rate 80 80 Respiratory Rate 18 16 Blood Pressure 132/75 131/76 Pulse Oximetry 96 97 Oxygen Delivery Room Air 04/30/24 23:58 05/01/24 04:37 05/01/24 08:10 Temperature 97.7 F 97.8 F 98.1 F Pulse Rate 81 77 70 Respiratory Rate 16 16 18 Blood Pressure 137/74 139/77 133/72 Pulse Oximetry 96 97 97 Oxygen Delivery 05/01/24 08:15 Temperature Pulse Rate Respiratory Rate Blood Pressure Pulse Oximetry Oxygen Delivery Room Air Intake/Output Intake/Output: Intake & Output 04/28/24 04/29/24 04/30/24 05/01/24 23:59 23:59 23:59 23:59 Intake Total 2079 580 Balance 2079 580 Meds/Results Radiology Results: ITS Impressions Knee X-Ray 04/30/24 11:01 IMPRESSION: 1. Total right knee arthroplasty in near-anatomic alignment. Labs Labs: Laboratory Results - last 24 hr 05/01/24 06:40 WBC 6.3 RBC 3.62 L Hgb 11.5 L Hct 34.4 L MCV 95.0 MCH 31.8 MCHC 33.4 RDW 13.2 Plt Count 191 MPV 8.7 Immature Gran % (Auto) 0.2 Neut % (Auto) 72.0 Lymph % (Auto) 13.7 L [place] % (Auto) 13.2 H Eos % (Auto) 0.6 Baso % (Auto) 0.3 Lymph # (Auto) 0.86 L [place] # (Auto) 0.8 H Eos # (Auto) 0.0 Baso # (Auto) 0.0 Abs Immat Gran (auto) 0.01 Absolute Neuts (auto) 4.5 Absolute Nucleated RBC 0.000 Nucleated RBC % 0.0 Sodium 134 L Potassium 3.6 Chloride 103 Carbon Dioxide 29 Anion Gap 2 L BUN 13 Creatinine 0.80 Estim Creat Clear Calc 76 Estimated GFR > 60 Glucose 123 H Calcium 8.1 L
== END 2024-05-01 10:55 | disposition home or self-care (01) ==
LOC: ANHSURGERY 05:45 → ANH3MEDSUR 11:05
PROVIDERS: PCP Internal Medicine; Visit Provider Orthopaedic Surgery
PROC: (CPT 27447; principal; 2024-04-30 07:30)
DX: M17.11 Unilateral primary osteoarthritis, right knee (principal); G89.18 Other acute postprocedural pain; E78.5 Hyperlipidemia, unspecified; K50.90 Crohn's disease, unspecified, without complications; Z79.1 Long term (current) use of non-steroidal anti-inflammatories (NSAID); Z79.82 Long term (current) use of aspirin; Z98.890 Other specified postprocedural states; Z96.652 Presence of left artificial knee joint; Z87.891 Personal history of nicotine dependence
CPT/HCPCS: 64447; 27447; 36415; 73560; 80048; 85025; 97110; 97116; 97161; 97165; 97530; 97535; A9270; C1713; C1776; J0171; J0690; J1100; J1885; J2003; J2250; J2270; J2405; J2704; J2795; J3010; J3370; J7030; J7120